=== PATIENT | male | born 1990 | race Caucasian/White ===

== ENCOUNTER 2018-08-22 11:56 | Emergency (ER) | payer OTHER ==
[~2018-08-22] VITALS: Ht 182.9 cm; Wt 81.7 kg
[2018-08-22] MEDS ORDERED: CEPH500 PO (15:42)
[2018-08-22] MEDS ORDERED: Percocet 7.5-31 EACH PO (16:20)
== END 2018-08-22 16:28 | disposition home or self-care (01) ==
LOC: ER 11:56
DX: S62.637B Displaced fracture of distal phalanx of left little finger, initial encounter for open fracture (principal); W22.8XXA Striking against or struck by other objects, initial encounter
CPT/HCPCS: 36415; 73130; 90714; A9270-GY; J0690; J2405; J3010

== ENCOUNTER 2018-08-26 08:03 | Day surgery (SDC) | payer OTHER ==
[~2018-08-26 08:03] MED LIST: CEPH500 PO; Percocet 7.5-31 EACH PO
--- NOTE | 2018-08-26 09:09 | NUR ---
History, Chart, Medications and Allergies reviewed before start of procedure. Patient States Post-Procedure ride home has been arranged. Lungs clear T/O to Auscultation.
--- NOTE | 2018-08-26 10:56 | NUR ---
08/26/18 1056 Jolly Rossi A 50-50 MIXTURE OF 1% LIDOCAINE USED WITH 0.5% BUPIVICAINE IN PROCEDURE FOR A TOTAL OF 6CC'S.
--- NOTE | 2018-08-26 13:03 | NUR ---
Discharge instructions reviewed with patient. Patient verbalizes understanding. Copy given to patient to take home. PATIENT DENIES PAIN, REPORTS ALREADY HAS MEDICATION FROM [facility] AVAILABLE AT HOME TO TAKE IF NEEDED. NOT MEDICATED IN DAY SURGERY. DENIES NAUSE. Discharged via wheelchair to private car for ride home.
== END 2018-08-26 22:36 | disposition home or self-care (01) ==
LOC: ORSCMMR 08:03
PROVIDERS: Orthopaedic Surgery
PROC: 0HQQXZZ Repair Finger Nail, External Approach (ICD-10-PCS; principal; 2018-08-26 09:45)
PROC: 0PSV04Z Reposition Left Finger Phalanx with Internal Fixation Device, Open Approach (ICD-10-PCS; principal; 2018-08-26 09:45)
PROC: 0JQK0ZZ Repair Left Hand Subcutaneous Tissue and Fascia, Open Approach (ICD-10-PCS; principal; 2018-08-26 09:45)
DX: S62.637A Displaced fracture of distal phalanx of left little finger, initial encounter for closed fracture (principal); S69.82XA Other specified injuries of left wrist, hand and finger(s), initial encounter
CPT/HCPCS: 73140; J0690; J1100; J1885; J2250; J2405; J3010; J7120